=== PATIENT | female | born 1975 | race African-American/Black ===

== ENCOUNTER 2017-04-20 20:20 | Inpatient (IN) | payer OTHER ==
[~2017-04-20] VITALS: Ht 160 cm; Wt 54.0 kg
[2017-04-20 21:11] VITALS: BP 106/76
--- NOTE | 2017-04-20 21:24 | NUR ---
to kerry, a/w bed, virginie, anna ermd noted nasal swab for influ a&b done
--- NOTE | 2017-04-20 22:46 | NUR ---
PT TAKEN TO OF3
--- NOTE | 2017-04-20 22:59 | NUR ---
PATIENT PRESENTS TO ED WITH C/O fever, runny nose, h/a, started today . PT DENIES N/V/D; SKIN IS PINK/WARM/DRY; AAOX4 WITH EVEN AND STEADY GAIT; LUNGS CLEAR BL; HR EVEN AND REGULAR; PT DENIES ANY CP, SOB, OR COUGH AT THIS TIME; PATIENT STATES PAIN OF 6/10 AT THIS TIME; VSS; PATIENT POSITIONED FOR COMFORT; HOB ELEVATED; BEDRAILS UP X2; BED DOWN. ER MD MADE AWARE OF PT STATUS.
--- NOTE | 2017-04-20 23:06 | NUR ---
PT MOVED TO BED 2
[2017-04-20 23:35] LABS: HEMATOCRIT 39.5 % (36-48); HEMOGLOBIN 12.4 g/dL (12.0-16.0); MEAN CORPUSCULAR HEMOGLOBIN 25 pg (27-31); MEAN CORPUSCULAR HGB CONC 31 g/dL (33-37); MEAN CORPUSCULAR VOLUME 79 fL (80-94); PLATELET COUNT (AUTO) 291 K/uL (140-450); RED BLOOD CELL COUNT(AUTO) 4.98 MIL/uL (4.20-5.40); WHITE BLOOD COUNT (AUTO) 9.9 K/uL (4.8-10.8)
[2017-04-20 23:41] LABS: ANION GAP 17.7 (8-16); CARBON DIOXIDE 27.6 mmol/L (21-32); POTASSIUM 4.3 mmol/L (3.5-5.1)
[2017-04-20 23:46] LABS: ALBUMIN 3.2 g/dL (3.4-5.0); TOTAL BILIRUBIN 1.1 mg/dL (0.0-1.0)
[2017-04-20 23:48] LABS: APPEARANCE,URINE SL CLOUDY (CLEAR); BILIRUBIN,URINE NEGATIVE (NEGATIVE); BLOOD, URINE TRACE-I (NEGATIVE); COLOR,URINE YELLOW (YELLOW); LEUKOCYTE ESTERASE ,URINE TRACE (NEGATIVE); NITRITE, URINE NEGATIVE (NEGATIVE); PH,URINE 6.5 (5.0-9.0); UGLUCOSE NEGATIVE (NEGATIVE)
[2017-04-20 23:55] LABS: RED CELL DISTRIBUTION WIDTH 20.1 % (11.6-13.7)
[2017-04-21 00:01] LABS: RBC,URINE 0-5 (RARE) /HPF (0-5); WBC,URINE 0-5 (RARE) /HPF (0-5)
--- NOTE | 2017-04-21 00:19 | NUR ---
PT CAN NOT RECALL ALL HER HOME MEDS/DOSE AT THIS TIME.-ER MD NOTIFTED.
[2017-04-21] MEDS ORDERED: ONDANSETRON 4 MG/2 ML VIAL IVP PRN (00:30)
[2017-04-21] MEDS ORDERED: HYDROcodone/APAP 7.5/325 MG 1 TAB PO PRN (00:30)
[2017-04-21] MEDS ORDERED: ACETAMINOPHEN 325 MG TAB PO PRN (00:30)
--- NOTE | 2017-04-21 00:42 | NUR ---
IV 20GA RT HAND DONE.
[2017-04-21 00:59] LABS: PROTHROMBIN TIME 13.2 secs (10.8-13.4)
[2017-04-21 01:19] LABS: FREE T4 (FREE THYROXINE) 0.9 ng/dL (0.76-1.46); PHOSPHORUS 3.9 mg/dL (2.5-4.9); THYROID STIMULATING HORMONE 2.56 uIU/mL (0.34-3.74)
--- NOTE | 2017-04-21 01:32 | NUR ---
PT TRANSFERRED TO FLOOR VIA [place], PUBLIC SERVICE OFFICER IN BED. NO S/S OF DISTRESS NOTED. ACCOMPANIED BY RN AND EMT.
--- NOTE | 2017-04-21 01:37 | NUR ---
REPORT GIVEN TO GLORIA MOISE AT BEDSIDE.
--- NOTE | 2017-04-21 01:45 | NUR ---
PT ARRIVED VIA GURNEY FROM ER, BUT AMBULATED FROM HALLWAY TO BED WITH STEADY GAIT. RECEIVED REPORT AT BEDSIDE FROM ER NURSE. PT A/OX4, ON ROOM AIR. PT IS HOMELESS AND CAME IN WITH 2 SUITCASES BUT SHE AGREED TO LET SECURITY HOLD THEM FOR HER. PT HAS IV TO RIGHT HAND 20G, SL. PT SKIN IS INTACT. SAFETY PRECAUTIONS IN PLACE. UPDATED BOARD. VITAL SIGNS WITHIN NORMAL LIMITS, PT DENIES PAIN. PT IN STABLE CONDITION, NO SIGNS OF DISTRESS NOTED. BED IN LOW POSITION, CALL LIGHT WITHIN REACH. WILL CONTINUE TO MONITOR.
[2017-04-21 02:30] VITALS: BP 115/78
[2017-04-21] MEDS ORDERED: FUROSEMIDE 20 MG/2 ML VIAL IVP SCH ×3 (03:00→09:02)
[2017-04-21] MEDS ORDERED: cefTRIAXone 1,000 MG VIAL ONE (03:33)
[2017-04-21] MEDS ORDERED: FUROSEMIDE 20 MG/2 ML VIAL IVP ONE ×2 (03:33→09:37)
[2017-04-21 03:37] LABS: CHOL/HDL RATIO 5.3 (1-4.5)
--- NOTE | 2017-04-21 03:50 | NUR ---
ADMINISTERED ORDERED MEDICATIONS, PT TOLERATED WELL.
--- NOTE | 2017-04-21 04:00 | NUR ---
VITAL SIGNS WITHIN NORMAL LIMITS. PT IN STABLE CONDITION, NO SIGNS OF DISTRESS NOTED. BED IN LOW POSITION, CALL LIGHT WITHIN REACH. WILL CONTINUE TO MONITOR.
--- NOTE | 2017-04-21 07:25 | NUR ---
ENDORSED PT IN STABLE CONDITION TO DAY SHIFT NURSE FOR CONTINUITY OF CARE.
--- NOTE | 2017-04-21 07:26 | NUR ---
RECEIVED REPORT FROM RESOLUTION REP RN. PATIENT HAS NO SIGNS AND SYMPTOMS OF ACUTE DISTRESS NOTED AT THIS TIME. PATIENT HAS IV TO RIGHT HAND 20G, ON SALINE LOCK AT THIS TIME. SITE IS CLEAN, DRY, PATENT AND INTACT. DISCUSSED PLAN OF CARE WITH PATIENT, SHE VERBALIZED UNDERSTANDING. BED IS IN LOWEST POSITION, SIDE RAILS UP X2, CALL LIGHT PLACED WITHIN REACH. WILL CONTINUE TO MONITOR.
[2017-04-21 08:00] VITALS: BP 91/62
[2017-04-21 08:37] LABS: BARBITURATE, URINE NEG. ng/ml (NEG <=200); BENZODIAZEPINE, URINE NEG. ng/mL (NEG <=200); CANNABINOID, URINE NEG. ng/mL (NEG <=50); COCAINE, URINE NEG. ng/mL (NEG <=300); OPIATE, URINE NEG. ng/mL (NEG <=2000); PHENCYCLIDINE SCREEN,URINE NEG. ng/mL (NEG <=25)
--- NOTE | 2017-04-21 08:49 | NUR ---
PATIENT HAS BEEN SCREENED AND CATEGORIZED HIGH NUTRITION RISK. PATIENT WILL BE SEEN WITHIN 1-2 DAYS OF ADMISSION. 04/21/17-04/22/[address]
[2017-04-21] MEDS: DOCUSATE SODIUM 100 MG GELCAP PO SCH ×2 (09:00→20:57)
[2017-04-21] MEDS: LACTOBACILLUS RHAMNOSUS GG 1 EACH CAP PO SCH (09:00)
[2017-04-21] MEDS ORDERED: METOPROLOL SUCCINATE 50 MG TABER PO SCH (09:03)
[2017-04-21] MEDS ORDERED: DOCUSATE SODIUM 100 MG GELCAP PO ONE ×2 (09:37→20:45)
[2017-04-21] MEDS ORDERED: SPIRONOLACTONE 25 MG TAB ONE (09:37)
[2017-04-21] MEDS ORDERED: LACTOBACILLUS RHAMNOSUS GG 1 EACH CAP ONE (09:38)
[2017-04-21] MEDS: SPIRONOLACTONE 25 MG TAB PO SCH (09:40)
--- NOTE | 2017-04-21 09:45 | NUR ---
PATIENT REFUSED HER COLACE AND CULTURELLE. SAID HER STOMACH IS FINE DOESN'T NEED THOSE MEDICATIONS. TOOK THE ALDACTONE AND LASIX. WILL CONTINUE TO MONITOR.
[2017-04-21 12:00] VITALS: BP 90/64
--- NOTE | 2017-04-21 14:15 | NUR ---
04/21/2017 RD INITIAL ASSESSMENT COMPLETED PLEASE REFER TO NUTRITION ASSESSMENT UNDER CARE ACTIVITY FOR ESTIMATED NUTRITIONAL NEEDS. CONTINUE CARDIAC WHILE ADMITTED, ENCOURAGE HEALTHY CHOICES FOOD AVAILABILITY PERMITS ONCE DISCHARGED CONSULT RD PRN RD TO FOLLOW-UP IN 3-5 DAYS PATIENT IS MODERATE RISK. CIERA FREDERICK, RD
--- NOTE | 2017-04-21 14:17 | NUR ---
PT REFUSED ECHO. CANCELLED PER PHYSICIAN
--- NOTE | 2017-04-21 15:45 | NUR ---
FAXED MEDICAL RECORDS REQUEST TO IN [facility] PER DOCTORS ORDER.
[2017-04-21 16:00] VITALS: BP 97/59
--- NOTE | 2017-04-21 19:15 | NUR ---
ENDORSED PATIENT TO STEAM SHOVEL ENGINEER RN FOR CONTINUITY OF CARE. PATIENT IN STABLE CONDITION.
--- NOTE | 2017-04-21 19:20 | NUR ---
RECEIVED PT IN STABLE CONDITION FROM AM NURSE. AWAKE, ALERT AND ORIENTED X4. ON TELE MONITOR. AM NURSE JUST STARTED A NEW IV ACCESS ON THE LT HAND#22. CLEAR AND PATENT. AMBULATORY. WITH NO C/O OF ANY DISCOMFORT NOR PAIN NOTED. WANTS TO WASH UP. V BELT COVERER TO ASSIST PT. PLAN OF CARE DISCUSSED AND VERBALIZED UNDERSTANDING. FREQUENT ROUND NEEDED. BED ON LOW POSITION. CALL LIGHT PLACED WITHIN EASY REACH. WILL CONTINUE TO MONITOR.
[2017-04-21 20:00] VITALS: BP 105/57
--- NOTE | 2017-04-21 20:00 | NUR ---
PT JUST FINISHED EATING DINNER . HAD SOME SANDWICH,JUICE AND TEA. WILL CONITNUE TO MONITOR. WILL CHECK BLOOD SUGAR LATER. Addendum: 04/21/17 at 2253 by María Menard RN CANCEL ABOVE NOTES. WRONG PT.
--- NOTE | 2017-04-21 20:45 | NUR ---
PT UP TO THE FAUCET AND WASHED HERSELF . NO SOB NOTED. THEN BED WAS CHANGED PER PT REQUEST.
--- NOTE | 2017-04-21 21:30 | NUR ---
PT REQUESTED FOR SOME SANDWICH AND JUICE. PROVIDED AND ABLE TO TOLERATE WELL.
[2017-04-22] VITALS: BP 105/72
--- NOTE | 2017-04-22 02:00 | NUR ---
SLEEPING WELL AT THIS TIME. NO S/S OF ANY DISTRESS NOR DISCOMFORT NOTED.
[2017-04-22 04:00] VITALS: BP 105/71
--- NOTE | 2017-04-22 04:00 | NUR ---
VITAL SIGNS STABLE. NO C/O ANY DISCOMFORT NOTED.
--- NOTE | 2017-04-22 06:00 | NUR ---
BLOOD WAS DRAWN THIS AM . WILL FOLLOW UP RESULT.
[2017-04-22 06:49] LABS: ANION GAP 13.3 (8-16); BASOPHILS # (AUTO) 0.2 K/uL (0.00-0.22); BASOPHILS % (AUTO) 1.8 % (0.0-2.0); CARBON DIOXIDE 29.4 mmol/L (21-32); CREATININE 1.9 mg/dL (0.6-1.3); EOSINOPHILS # (AUTO) 0.3 K/uL (0-0.4); EOSINOPHILS % (AUTO) 3.3 % (0.0-4.0); HEMATOCRIT 32.9 % (36-48); HEMOGLOBIN 10.9 g/dL (12.0-16.0); LYMPHOCYTES % (AUTO) 23.4 % (20.5-51.1); MEAN CORPUSCULAR HEMOGLOBIN 26 pg (27-31); MEAN CORPUSCULAR HGB CONC 33 g/dL (33-37); MEAN CORPUSCULAR VOLUME 80 fL (80-94); MONOCYTES # (AUTO) 0.4 K/uL (0.8-1.0); MONOCYTES % (AUTO) 4.6 % (1.7-9.3); NEUTROPHILS # (AUTO) 5.7 K/uL (1.8-7.7); NEUTROPHILS % (AUTO) 66.9 % (42.2-75.2); PLATELET COUNT (AUTO) 312 K/uL (140-450); POTASSIUM 4.7 mmol/L (3.5-5.1); RED BLOOD CELL COUNT(AUTO) 4.14 MIL/uL (4.20-5.40); RED CELL DISTRIBUTION WIDTH 20.5 % (11.6-13.7); WHITE BLOOD COUNT (AUTO) 8.6 K/uL (4.8-10.8)
[2017-04-22 06:57] LABS: MAGNESIUM 1.9 mg/dL (1.8-2.4); PHOSPHORUS 3.6 mg/dL (2.5-4.9)
--- NOTE | 2017-04-22 07:15 | NUR ---
ENDORSED PT IN STABLE CONDITION TO AM NURSE.
--- NOTE | 2017-04-22 07:16 | NUR ---
REPORT RECIEVED FROM CONNECTION WORKER, PATIENT SLEEPING QUIETLY, RESPIRATIONS EVEN AND UNLABORED, ON RA, SKIN W/D TO TOUCH, COLOR WNL, HEPLOCK TO LEFT HAND , SITE WNL, 22G, PATIENT AROUSES EASILY BY VOICE DENIES PAIN OR DISCOMFORT, PLAN OF CARE REVIEWED, CALL LIGHT WITHIN REACH, SIDE RAILS UP, BED LOCKED IN LOW POSITION , WILL CONT TO MONITOR
[2017-04-22 08:00] VITALS: BP 106/70
[2017-04-22] MEDS ORDERED: FUROSEMIDE 40 MG/4 ML VIAL IVP SCH (09:00)
[2017-04-22] MEDS ORDERED: METOPROLOL SUCCINATE 50 MG TABER PO SCH (09:00)
[2017-04-22] MEDS ORDERED: DOCUSATE SODIUM 100 MG GELCAP PO ONE (09:09)
[2017-04-22] MEDS ORDERED: METOPROLOL 25 MG TAB ONE (09:10)
[2017-04-22] MEDS ORDERED: FUROSEMIDE 40 MG/4 ML VIAL IVP ONE (09:10)
[2017-04-22] MEDS ORDERED: LACTOBACILLUS RHAMNOSUS GG 1 EACH CAP ONE (09:10)
[2017-04-22] MEDS ORDERED: SPIRONOLACTONE 25 MG TAB ONE (09:10)
[2017-04-22] MEDS: DOCUSATE SODIUM 100 MG GELCAP PO SCH ×2 (09:18→21:00)
[2017-04-22] MEDS: LACTOBACILLUS RHAMNOSUS GG 1 EACH CAP PO SCH (09:18)
[2017-04-22] MEDS: SPIRONOLACTONE 25 MG TAB PO SCH (09:20)
--- NOTE | 2017-04-22 10:00 | NUR ---
DR WILSON MADE AWARE THAT PT REFUSED LASIX THIS AM.
[2017-04-22 12:00] VITALS: BP 91/50
--- NOTE | 2017-04-22 15:47 | NUR ---
PT NOW MED SURGE STATUS, TELE MONITOR REMOVED.
--- NOTE | 2017-04-22 16:00 | NUR ---
PT REFUSED VITAL SIGNS.
[2017-04-22] MEDS ORDERED: DIPHENOXYLATE /ATROPINE 2.5 MG TAB PO PRN (17:20)
[2017-04-22] MEDS ORDERED: DIPHENOXYLATE /ATROPINE 2.5 MG TAB ONE (17:42)
--- NOTE | 2017-04-22 19:20 | NUR ---
RECEIVED PT IN STABLE CONDITION FROM AM NURSE. PT ON MED SURG. AWAKE,ALERT AND ORIENTED X4. AMBULATORY. WITH NO SOB NOR DISCOMFORT NOTED. BUT STILL WITH OCCASIONAL NON PRODUCTIVE COUGH. HAS HL ON THE LT HAND #22. CLEAR AND PATENT. PLAN OF CARE DISCUSSED AND NEED MORE REINFORCEMENT DUE TO PT TELLING THAT SHE DOESN'T WANT TO HAVE THE ANTIBIOTICS, FOR IT CAUSES HER DIARRHEA. WILL TRY LATER WHEN IT IS DUE. BED ON LOW POSITION. CALL LIGHT PLACED WITHIN EASY REACH. WILL CONTINUE TO MONITOR.
--- NOTE | 2017-04-22 19:25 | NUR ---
REPORT GIVEN TO SHUTTLE OPERATOR NURSE, PT IN STABLE CONDITION.
--- NOTE | 2017-04-22 20:45 | NUR ---
PT WANTS TO TAKE SHOWER. DR. BRAMBILA MADE AWARE. OK TO HAVE SHOWER.
[2017-04-22] MEDS: CARVEDILOL 3.125 MG TAB PO SCH (21:00)
--- NOTE | 2017-04-22 21:45 | NUR ---
PT REFUSED NIGHT MEDS AND ANTIBIOTICS. DR. BRAMBILA AGAIN MADE AWARE.
--- NOTE | 2017-04-22 22:24 | NUR ---
MADE ROUNDS, PT IN BED. NO CO ANY DISTRESS NOR PAIN NOTED.
[2017-04-23 00:24] VITALS: BP 98/57
--- NOTE | 2017-04-23 00:30 | NUR ---
PT AWAKE, BUT NO C/O OF ANY DISCOMFORT NOR DISTRESS NOTED.
--- NOTE | 2017-04-23 03:00 | NUR ---
MADE ROUNDS. PT IS ASLEEP. NO DISCOMFORT NOTED.
--- NOTE | 2017-04-23 05:00 | NUR ---
STILL SLEEPING. NO S/S OF ANY DISTRESS NOTED. WILL CONTINUE TO MONITOR.
--- NOTE | 2017-04-23 05:30 | NUR ---
PT REFUSED BLOOD DRAW THIS AM. WILL HAVE TO TRY LATER.
--- NOTE | 2017-04-23 07:10 | NUR ---
RECEIVED PATIENT BEDSIDE REPORT AT BEDSIDE FROM NIGHTSHIFT NURSE. PATIENT IS ASLEEP AT THIS TIME. PATIENT IS AROUSABLE BUT DOES NOT WANT TO BE BOTHERED. PATIENT IS A&OX4. PATIENT DOES NOT PRESENT WITH A FEVER AND SHOWS NO SIGNS OF RESPIRATORY DISTRESS OR RESPIRATORY DEPRESSION. UPDATED BOARDS AND CALL LIGHT WITHIN REACH. WILL CONTINUE TO MONITOR PATIENT
--- NOTE | 2017-04-23 07:20 | NUR ---
ENDORSED PT IN STABLE CONDITION TO AM NURSE.
[2017-04-23 08:00] VITALS: BP 91/56
[2017-04-23] MEDS: DOCUSATE SODIUM 100 MG GELCAP PO SCH (09:00)
[2017-04-23] MEDS ORDERED: LISINOPRIL 10 MG TAB PO SCH (09:00)
[2017-04-23] MEDS: CARVEDILOL 3.125 MG TAB PO SCH (09:00)
[2017-04-23] MEDS: LACTOBACILLUS RHAMNOSUS GG 1 EACH CAP PO SCH (09:00)
--- NOTE | 2017-04-23 09:00 | NUR ---
PT IS AWAKE EATING BREAKFAST. PATIENT DOES NOT PRESENT WITH A FEVER AND SHOWS NO SIGNS OF RESPIRATORY DISTRESS. WILL CONTINUE TO MONITOR PATIENT.
[2017-04-23] MEDS ORDERED: LACT10CA PO (09:45)
[2017-04-23] MEDS ORDERED: SULF-59 PO (09:45)
[2017-04-23] MEDS ORDERED: LISI10TA11 PO (09:45)
[2017-04-23] MEDS ORDERED: CARV3.122 PO (09:45)
[2017-04-23] MEDS ORDERED: LEVO250T2 PO (10:09)
--- NOTE | 2017-04-23 14:25 | NUR ---
PATIENT LEFT WITH ALL BELONGINGS VIA PRIVATE VEHICLE. PATIENT TOOK DISCHARGE INSTRUCTIONS AND VERBALIZED UNDERSTANDING OF ALL PRESCRIPTIONS. ID BAND AND TELE MONITOR TAKEN OFF. IV TAKEN OUT WITH THE CATHETER STILL INTACT. PATIENT LEFT IN STABLE CONDITION.
== END 2017-04-23 14:25 | disposition home or self-care (01) | DRG 682 ==
LOC: MED 20:20 → MTU 04-21 00:29
PROVIDERS: ADMIT Family Medicine Sports Medicine; ATTEND Family Medicine Sports Medicine
DX: N17.0 Acute kidney failure with tubular necrosis (principal); I50.43 Acute on chronic combined systolic (congestive) and diastolic (congestive) heart failure; E44.0 Moderate protein-calorie malnutrition; E44.1 Mild protein-calorie malnutrition; D68.9 Coagulation defect, unspecified; F20.9 Schizophrenia, unspecified; N39.0 Urinary tract infection, site not specified; I34.0 Nonrheumatic mitral (valve) insufficiency; I51.7 Cardiomegaly; I37.1 Nonrheumatic pulmonary valve insufficiency; R80.9 Proteinuria, unspecified; I25.10 Atherosclerotic heart disease of native coronary artery without angina pectoris; N18.3 Chronic kidney disease, stage 3 (moderate); R31.9 Hematuria, unspecified; R74.0 Nonspecific elevation of levels of transaminase and lactic acid dehydrogenase [LDH]; E78.5 Hyperlipidemia, unspecified; D63.8 Anemia in other chronic diseases classified elsewhere; E80.6 Other disorders of bilirubin metabolism; K80.20 Calculus of gallbladder without cholecystitis without obstruction; Z68.21 Body mass index [BMI] 21.0-21.9, adult; Z91.19 Patient's noncompliance with other medical treatment and regimen; Z59.0 Homelessness; Z88.6 Allergy status to analgesic agent
CPT/HCPCS: 36415; 71045; 76705; 80048; 80053; 80305; 81001; 83036; 83735; 83880; 84100; 84439; 84443; 84484; 85025; 85610; 85730; 87081; 87086; 87804; 93005; 99285; J0696; J1940; J7060; Q0092